=== PATIENT | female | born 1990 | race Caucasian/White ===

== ENCOUNTER 2019-10-30 15:22 | Emergency (ER) | payer BC, OTHER ==
[~2019-10-30] VITALS: Ht 162 cm; Wt 81.0 kg
[2019-10-30 16:14] LABS: BASOPHILS % (AUTO) 0 % (0-10); EOSINOPHILS # (AUTO) 0.2 10^3/uL (0.0-0.3); EOSINOPHILS % (AUTO) 2 % (0-10); HEMATOCRIT 39 % (35-52); HEMOGLOBIN 13.2 G/DL (11.5-16.0); LYMPHOCYTES # (AUTO) 1.8 X 10^3 (1.0-4.0); LYMPHOCYTES % (AUTO) 20 % (12-44); MEAN CORPUSCULAR HEMOGLOBIN 31 PG (25-34); MEAN CORPUSCULAR HGB CONC 34 G/DL (32-36); MEAN CORPUSCULAR VOLUME 90 FL (80-99); MEAN PLATELET VOLUME 10.7 FL (7.4-10.4); MONOCYTES # (AUTO) 0.5 X 10^3 (0.0-1.0); MONOCYTES % (AUTO) 5 % (0-12); NEUTROPHILS # (AUTO) 6.9 X 10^3 (1.8-7.8); NEUTROPHILS % (AUTO) 73 % (42-75); PLATELET COUNT 142 10^3/uL (130-400); RED CELL DISTRIBUTION WIDTH 12.1 % (10.0-14.5); WHITE BLOOD COUNT 9.4 10^3/uL (4.3-11.0)
[2019-10-30] MEDS ORDERED: ACETAMINOPHEN 500 MG TAB (TYLENOL) PO ONE (16:30)
[2019-10-30 16:31] LABS: INR 0.9 (0.8-1.4); PROTHROMBIN TIME PATIENT 12.5 SEC (12.2-14.7)
[2019-10-30 16:40] LABS: BILIRUBIN,URINE NEGATIVE (NEGATIVE); CLARITY,URINE TURBID; COLOR,URINE AMBER; GLUCOSE, URINE (UA) NEGATIVE (NEGATIVE); KETONES,URINE 1+ (NEGATIVE); LEUKOCYTE ESTERASE ,URINE 2+ (NEGATIVE); NITRITE,URINE POSITIVE (NEGATIVE); PROTEIN,URINE 3+ (NEGATIVE)
[2019-10-30 16:49] LABS: BACTERIA,URINE NEGATIVE /HPF; RBC,URINE TNTC /HPF; SQUAMOUS EPITHELIAL CELL,UR RARE /HPF; WBC,URINE RARE /HPF
[2019-10-30 17:00] LABS: CHLORIDE 103 MMOL/L (98-107); POTASSIUM 3.1 MMOL/L (3.6-5.0); SODIUM 138 MMOL/L (135-145)
[2019-10-30 17:01] LABS: CALCIUM 8.4 MG/DL (8.5-10.1); GLUCOSE 88 MG/DL (70-105)
[2019-10-30 17:03] LABS: CARBON DIOXIDE 20 MMOL/L (21-32)
[2019-10-30 17:05] LABS: CREATININE SERUM 0.74 MG/DL (0.60-1.30); GFR ESTIMATED > 60
[2019-10-30 17:06] LABS: BUN/CREATININE RATIO 11
[2019-10-30] MEDS ORDERED: ACET-789 PO (17:06)
--- NOTE | 2019-10-30 17:07 | ED GU-Female ---
General Chief Complaint: Female Reproductive Stated Complaint: APPROX 6 WKS PREG/CRAMPING/HEAVY BLEEDING Nursing Triage Note: patient reports miscarraige approx 6 weeks. c/o stomach cramps x1week. confirmed miscarraige by dr. corrales Nursing Sepsis Screen: No Definite Risk Source: patient History of Present Illness Date Seen by Provider: Oct 30, 2019 Time Seen by Provider: 15:40 Initial Comments PT ARRIVES VIA POV FROM HOME PT STATES SHE IS 6 WEEKS AND "HAD A GUSH OF BLOOD" AT 1500 TODAY HAS NOT USED ANY PADS YET HAS BEEN CRAMPING ALL DAY PT LATER STATES THAT SHE HAS ACTUALLY BEEN BLEEDING FOR THE LAST WEEK, BUT NOT BAD-UNTIL GUSH OF BLOOD TODAY LATER STATES THAT SHE PASSED TISSUE TODAY LATER SHE REPORTS THAT SHE "KNOWS SHE IS HAVING A MISCARRIAGE" AND HAS SEEN DR. KNUTSON FOR THIS, AND HAS HAD LAB DONE AND QUANT BHCG HAD BEEN 6700, DROPPED TO 4700, AND IN OFFICE ULTRASOUND DID NOT SHOW ANY HEART BEAT STATES SHE IS WORRIED ABOUT THE GUSH OF BLOOD AND THE PAIN HAS NOT TAKEN ANYTHING FOR PAIN PT IS STILL HER 16 MONTH OLD. Allergies and Home Medications Allergies Coded Allergies: hydrocodone (Verified Allergy, Mild, 10/30/19) Home Medications Acetaminophen with Codeine 1 Each Tablet, 1 EACH PO Q6H Prescribed by: BEULAH MIRANDA on 10/30/19 1706 Patient Home Medication List Home Medication List Reviewed: Yes Review of Systems Review of Systems Constitutional: no symptoms reported Respiratory: no symptoms reported Cardiovascular: no symptoms reported Gastrointestinal: see HPI, abdominal pain Genitourinary: see HPI : Yes Musculoskeletal: no symptoms reported Skin: no symptoms reported Psychiatric/Neurological: No Symptoms Reported Endocrine: No Symptoms Reported Hematologic/Lymphatic: No Symptoms Reported Past Ugcugyg-Xoscai-Slgzfr Hx Past Med/Social Hx: Reviewed and Corrections made Patient Social History Alcohol Use: Denies Use Recreational Drug Use: No Smoking Status: Never a Smoker 2nd Hand Smoke Exposure: No Recent Foreign Travel: No Contact w/Someone Who Travel: No Recent Infectious Disease Expo: No Recent Hopitalizations: No Physical Abuse: No Sexual Abuse: No Mistreated: No Fear: No Immunizations Up To Date Tetanus Booster (TDap): Less than 5yrs PED Vaccines UTD: Yes Seasonal Allergies Seasonal Allergies: Yes Past Medical History Surgeries: Yes Adenoidectomy, Section, Tonsillectomy Respiratory: Yes Asthma Currently Using CPAP: No Currently Using BIPAP: No Cardiac: Yes (tachycardia) : Yes Last Menstrual Period: August 27, 2019 Sexually Transmitted Disease: No HIV/AIDS: No Genitourinary: No Gastrointestinal: No Musculoskeletal: No Endocrine: No 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 oz. kg; 30.00 BMI Method: General Appearance: WD/WN, no apparent distress Cardiovascular: regular rate, rhythm, no murmur Respiratory: normal breath sounds Gastrointestinal: soft, no organomegaly, no pulsatile mass, tenderness (MILD SUPRAPUBIC TENDERNESS) Pelvic: No tender adnexa; tender uterus, vaginal bleeding (MODERATE AMOUNT OF BLOOD IN CANAL. 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 II-XII nml as tested, no motor/sensory deficits, alert, oriented x 3 Skin: normal color, warm/dry Progress/Results/Core Measures Suspected Sepsis Recent Fever Within 48 Hours: No Infection Criteria Present: None New/Unexplained Altered Menta: No Sepsis Screen: No Definite Risk SIRS Temperature: Pulse: 105 Respiratory Rate: 18 Laboratory Tests 10/30/19 15:55: White Blood Count 9.4 Blood Pressure 149 /96 Mean: 113 Laboratory Tests 10/30/19 15:55: Creatinine 0.74, INR Comment 0.9, Platelet Count 142 Results/Orders Lab Results Laboratory Tests Test 10/30/19 15:55 10/30/19 16:34 Range/Units White Blood Count 9.4 4.3-11.0 10^3/uL Red Blood Count 4.30 L 4.35-5.85 10^6/uL Hemoglobin 13.2 11.5-16.0 G/DL Hematocrit 39 35-52 % Mean Corpuscular Volume 90 80-99 FL Mean Corpuscular Hemoglobin 31 25-34 PG Mean Corpuscular Hemoglobin Concent 34 32-36 G/DL Red Cell Distribution Width 12.1 10.0-14.5 % Platelet Count 142 130-400 10^3/uL Mean Platelet Volume 10.7 H 7.4-10.4 FL Neutrophils (%) (Auto) 73 42-75 % Lymphocytes (%) (Auto) 20 12-44 % Monocytes (%) (Auto) 5 0-12 % Eosinophils (%) (Auto) 2 0-10 % Basophils (%) (Auto) 0 0-10 % Neutrophils # (Auto) 6.9 1.8-7.8 X 10^3 Lymphocytes # (Auto) 1.8 1.0-4.0 X 10^3 Monocytes # (Auto) 0.5 0.0-1.0 X 10^3 Eosinophils # (Auto) 0.2 0.0-0.3 10^3/uL Basophils # (Auto) 0.0 0.0-0.1 10^3/uL Prothrombin Time 12.5 12.2-14.7 SEC INR Comment 0.9 0.8-1.4 Activated Partial Thromboplast Time 32 24-35 SEC Sodium Level 138 135-145 MMOL/L Potassium Level 3.1 L 3.6-5.0 MMOL/L Chloride Level 103 98-107 MMOL/L Carbon Dioxide Level 20 L 21-32 MMOL/L Anion Gap 15 H 5-14 MMOL/L Blood Urea Nitrogen 8 7-18 MG/DL Creatinine 0.74 0.60-1.30 MG/DL Estimat Glomerular Filtration Rate > 60 BUN/Creatinine Ratio 11 Glucose Level 88 70-105 MG/DL Calcium Level 8.4 L 8.5-10.1 MG/DL Human Chorionic Gonadotropin, Quant 415 H <5 MIU/ML Urine Color VAL H Urine Clarity TURBID Urine pH 7.0 5-9 Urine Specific [place] 1.010 L 1.016-1.022 Urine Protein 3+ H NEGATIVE Urine Glucose (UA) NEGATIVE NEGATIVE Urine Ketones 1+ H NEGATIVE Urine Nitrite POSITIVE H NEGATIVE Urine Bilirubin NEGATIVE NEGATIVE Urine Urobilinogen 2.0 < = 1.0 MG/DL Urine Leukocyte Esterase 2+ H NEGATIVE Urine RBC (Auto) 3+ H NEGATIVE Urine RBC TNTC H /HPF Urine WBC RARE /HPF Urine Squamous Epithelial Cells RARE /HPF Urine Crystals NONE /LPF Urine Bacteria NEGATIVE /HPF Urine Casts NONE /LPF Urine Mucus NEGATIVE /LPF Urine Culture Indicated YES Micro Results Microbiology 10/30/19 Urine Culture - Preliminary, Resulted Culture In Progress My Orders Orders - RUBENBEULAH Flakito DO Basic Metabolic Panel (10/30/19 15:41) Cbc With Automated Diff (10/30/19 15:41) Hcg,Quantitative (10/30/19 15:41) Protime With Inr (10/30/19 15:41) Partial Thromboplastin Time (10/30/19 15:41) Abo Rh Type (10/30/19 15:41) Ed Iv/Invasive Line Start (10/30/19 15:41) Ed Iv/Invasive Line Start (10/30/19 15:41) Ua Culture If Indicated (10/30/19 16:22) Acetaminophen Tablet (Tylenol Tablet) (10/30/19 16:30) Urine Culture (10/30/19 16:34) Acetaminophen/Codeine Tablet (Tylenol W/ (10/30/19 17:15) Medications Given in ED Vital Signs/I&O Capillary Refill : Less Than 3 Seconds Blood Pressure Mean: 113 Progress Note : Progress Note PT ADVISED NO ULTRASOUND AVAILABLE HERE AT THIS TIME PT STATES SHE KNOWS SHE IS HAVING A MISCARRIAGE, BECAUSE OF DECREASED BETA HCG AND NO HEART BEAT ON OFFICE ULTRASOUND MAINLY WANTS SOMETHING FOR PAIN --STATES SHE HAD ITCHING ONE TIME WITH HYDROCODONE/VICODIN, BUT HAS TAKEN TYLENOL #3 WITHOUT PROBLEMS. Departure Impression Primary Impression: Spontaneous in first trimester Disposition: 01 HOME, SELF-CARE Condition: Stable Departure-Patient Inst. Referrals: REE KNUTSON MD (PCP/Family) Primary Care Physician Patient Instructions: Miscarriage (DC) Add. Discharge Instructions: NOTHING IN VAGINA KEEP AN ACCURATE PAD COUNT FOLLOW UP WITH DR. KNUTSON TOMORROW FOR FURTHER CARE All discharge instructions reviewed with patient and/or family. Voiced understanding. Scripts Acetaminophen with Codeine (Tylenol with Codeine #3 Tablet) 1 Each Tablet 1 EACH PO Q6H for Pain, #10 TAB Prov: BEULAH MIRANDA DO 10/30/19 BEULAH MIRANDA DO Oct 30, 2019 17:07
[2019-10-30 17:15] VITALS: BP 113/89
[2019-10-30] MEDS ORDERED: APAP 300 MG/CODEINE 30 MG (TYLENOL #3) TAB PO ONE (17:15)
== END 2019-10-30 17:15 | disposition home or self-care (01) ==
LOC: ER 15:24
DX: O03.9 Complete or unspecified spontaneous abortion without complication (principal); Z88.5 Allergy status to narcotic agent
CPT/HCPCS: 36415; 80048; 81000; 84702; 85025; 85610; 85730; 86900; 86901; 87088

== ENCOUNTER 2019-11-08 10:34 | Day surgery (SDC) | payer BC ==
[2019-11-08] VITALS (9 sets, daily range): BP systolic 96–121; BP diastolic 60–84
[~2019-11-08] VITALS: Ht 162 cm; Wt 81.0 kg
[~2019-11-08 10:34] MED LIST: ACET-789 PO
[2019-11-08] MEDS ORDERED: fentaNYL INJECTION 100 MCG/2 ML AMP ONE (11:15)
[2019-11-08] MEDS ORDERED: MIDAZOLAM 2 MG/2 ML (VERSED) VIAL ONE (11:15)
[2019-11-08] MEDS ORDERED: FAMOTIDINE 20MG/2ML IV (PEPCID) ONE ×2 (11:24→11:28)
[2019-11-08] MEDS ORDERED: ceFAZolin INJECTION 1,000 MG in WATER (STERILE) FOR INJECTION 10 ML IV ONE (11:30)
--- NOTE | 2019-11-08 11:33 | Progress Note-Pre Operative ---
Pre-Operative Progress Note H&P Reviewed The H&P was reviewed, patient examined and no changes noted. Date Seen by Provider: Nov 08, 2019 Time Seen by Provider: 11:33 Date H&P Reviewed: Nov 08, 2019 Time H&P Reviewed: 11:33 Pre-Operative Diagnosis: Missed REE HUNTER MD Nov 08, 2019 11:33
[2019-11-08 11:34] LABS: BASOPHILS % (AUTO) 0 % (0-10); EOSINOPHILS # (AUTO) 0.2 10^3/uL (0.0-0.3); EOSINOPHILS % (AUTO) 3 % (0-10); HEMATOCRIT 36 % (35-52); HEMOGLOBIN 11.7 G/DL (11.5-16.0); LYMPHOCYTES # (AUTO) 2.5 X 10^3 (1.0-4.0); LYMPHOCYTES % (AUTO) 29 % (12-44); MEAN CORPUSCULAR HEMOGLOBIN 29 PG (25-34); MEAN CORPUSCULAR HGB CONC 33 G/DL (32-36); MEAN CORPUSCULAR VOLUME 89 FL (80-99); MEAN PLATELET VOLUME 11.2 FL (7.4-10.4); MONOCYTES # (AUTO) 0.5 X 10^3 (0.0-1.0); MONOCYTES % (AUTO) 5 % (0-12); NEUTROPHILS # (AUTO) 5.5 X 10^3 (1.8-7.8); NEUTROPHILS % (AUTO) 63 % (42-75); PLATELET COUNT 212 10^3/uL (130-400); RED CELL DISTRIBUTION WIDTH 12.2 % (10.0-14.5); WHITE BLOOD COUNT 8.8 10^3/uL (4.3-11.0)
--- NOTE | 2019-11-08 11:34 | Progress Note-Post Operative ---
Post-Operative Progess Note Surgeon (s)/Holistic Nutritionist (s) Surgeon REE KNUTSON MD Holistic Nutritionist: no Pre-Operative Diagnosis Missed AB Post-Operative Diagnosis same Procedure & Operative Findings Date of Procedure 11/08/19 Procedure Performed/Findings D&C Anesthesia Type GETA Estimated Blood Loss Estimated blood loss (mL): 100cc Specimens/Packing Specimens Removed POC / uterine contents ERE KNUTSON MD Nov 08, 2019 11:34
--- NOTE | 2019-11-08 11:35 | Discharge Inst-Surgical ---
Discharge Inst-Surgical Depart Medication/Instructions New, Converted or Re-Newed RX: RX on Chart Consults/Follow Up Orders & Referrals Follow Up Appt: Call to make follow up appt. for patient in 2 weeks. Activity: Rest for 24 hours, than as tolerated. Diet: As tolerated. Shower or tub bathe as desired. No driving for 24 hours, no alcoholic beverages for 24 hours, and nothing per vagina (no tampons, douching, or intercourse) for 2 weeks. Patient to return to the clinic as soon as possible for: Temperature greater than 101F, Severe Pain, Foul discharge from incision or vagina, Excessive Bleeding (more than a period). Activity Activity as Tolerated: No Diet Discharge Diet: No Restrictions REE KNUTSON MD Nov 08, 2019 11:35
[2019-11-08] MEDS ORDERED: ONDANSETRON 4 MG/2 ML (SDV) Z0FRAN IVP PRN (11:45)
[2019-11-08] MEDS ORDERED: morphine INJ 10 MG/ML 1ML (SYR OR VIAL) IVP ONE (11:45)
[2019-11-08] MEDS ORDERED: SEVOFLURANE (ULTANE) 15 ML INHAL SOLN ONE (11:55)
[2019-11-08] MEDS ORDERED: proPOfol 200 MG/20 ML (DIPRIVAN) VIAL IV ONE (11:55)
[2019-11-08] MEDS ORDERED: LIDOCAINE PF 2% 5 ML (XYLOCAINE) VIAL ONE (11:55)
[2019-11-08] MEDS ORDERED: ONDANSETRON 4 MG/2 ML (SDV) Z0FRAN ONE (11:55)
--- OUTSIDE RECORDS SUMMARY | 2019-11-08 12:16 | XMS REPORT | Continuity of Care Document ---
Author Organization Unknown Address Unknown Phone Unavailable Allergies Active Description Code Type Severity Reaction Onset Reported/Identified Relationship to Patient Clinical Status Yes acetaminophen [id number] Brian g Allergy Mild N/A 10/30/2019 Yes hydrocodone [id number] Drug Aller gy Mild N/A 10/30/2019 Medications There is no data. Problems Date Dx Coded Attending Type Code Diagnosis Diagnosed By 11/02/2019 BEULAH MIRANDA DO Ot O03.9 COMPLETE OR UNSP SPONTANEOUS WI 11/02/2019 BEULAH MIRANDA DO Ot Z88.5 ALLERGY STATUS TO NARCOTIC AGENT STATUS Procedures There is no data. Results Test Result Range Complete blood count (CBC) with automate d white blood cell (WBC) differential - 10/30/19 15:55 Blood leukocytes automated count (number/volume) 9.4 10*3/uL 4.3-11.0 Blood erythrocytes automated count (number/volume) 4.30 10*6/uL 4.35-5.85 Venous blood hemoglobin measurement (mass/volume) 13.2 g/dL 11.5-16.0 Blood hematocrit (volume fraction) 39 % 35-52 Automated erythrocyte mean corpuscular volume 90 [ foz_us] 80-99 Automated erythrocyte mean corpuscular h emoglobin (mass per erythrocyte) 31 pg 25-34 Automated erythrocyte mean corpuscular h emoglobin concentration measurement (mass/volume) 34 g/dL 32-36 Automated erythrocyte distribution width ratio 12. 1 % 10.0- 14.5 Automated blood platelet count (count/volume) 142 10*3/uL 130-400 Automated blood platelet mean volume measurement 10.7 [foz_us] 7.4-10.4 Automated blood neutrophils/100 leukocytes 73 % 42-75 Automated blood lymphocytes/100 leukocytes 20 % 12-44 Blood monocytes/100 leukocytes 5 % 0-12 Automated blood eosinophils/100 leukocytes 2 % 0-10 Automated blood basophils/100 leukocytes 0 % 0-10 Blood neutrophils automated count (number/volume) 6.9 10*3 1.8-7.8 Blood lymphocytes automated count (number/volume) 1.8 10*3 1.0-4.0 Blood monocytes automated count (number/volume) 0. 5 10*3 0.0-1.0 Automated eosinophil count 0.2 10*3/uL 0 .0-0.3 Automated blood basophil count (count/volume) 0.0 10*3/uL 0.0-0.1 ABO+Rh group - 10/30/19 15:55 WRISTBAND NUMBER [id number] NRG ABO+Rh group OP NRG PT panel in platelet poor plasma by coag ulation assay - 10/30/19 15:55 Prothrombin time (PT) in platelet poor plasma by coagu lation assay 12.5 s 12.2-14.7 INR in platelet poor plasma or blood by coagulation as say 0.9 0.8-1.4 Activated partial thromboplastin time (a PTT) in platelet poor plasma bycoagulation assay - 10/30/19 15:55 Activated partial thromboplastin time (a PTT) in platelet poor plasma bycoagulation assay 32 s 24-35 Whole blood basic metabolic panel - 10/18 06/09 15:55 Serum or plasma sodium measurement (moles/volume) 138 mmol/L 135-145 Serum or plasma potassium measurement (moles/volume) 3.1 mmol/L 3.6-5.0 Serum or plasma chloride measurement (moles/volume) 103 mmol/L 98-107 Carbon dioxide 20 mmol/L 21-32 Serum or plasma anion gap determination (moles/volume) 15 mmol/L 5-14 Serum or plasma urea nitrogen measurement (mass/volume ) 8 mg/dL 7-18 Serum or plasma creatinine measurement (mass/volume) 0.74 mg/dL 0.60-1.30 Serum or plasma urea nitrogen/creatinine mass ratio 11 NRG Serum or plasma creatinine measurement w ith calculation of estimated glomerular filtration rate > NRG Serum or plasma glucose measurement (mass/volume) 88 mg/dL 70-105 Serum or plasma calcium measurement (mass/volume) 8.4 mg/dL 8.5-10.1 Serum or plasma choriogonadotropin measu rement (units/volume) - 10/30/19 15:55 Serum or plasma choriogonadotropin measurement (units/ volume) 415 m[iU]/mL <5 Complete urinalysis with reflex to cultu re - 10/30/19 16:34 Urine color determination VAL NRG Urine clarity determination TURBID NR G Urine pH measurement by test strip 7.0 5-9 Specific gravity of urine by test strip 1.010 1.016-1.022 Urine protein assay by test strip, semi-quantitative 3+ NEGATIVE Urine glucose detection by automated test strip NE GATIVE NEGATIVE Erythrocytes detection in urine sediment by light micr oscopy 3+ NEGATIVE Urine ketones detection by automated test strip 1+ NEGATIVE Urine nitrite detection by test strip POSITIVE NEGATIVE Urine total bilirubin detection by test strip NEGA TIVE NEGATIVE Urine urobilinogen measurement by automated test strip (mass/volume) 2.0 mg/dL < = 1.0 Urine leukocyte esterase detection by dipstick 2+ NEGATIVE Automated urine sediment erythrocyte cou nt by microscopy (number/high power field) TNTC NRG Automated urine sediment leukocyte count by microscopy (number/high power field) RARE NRG Bacteria detection in urine sediment by light microsco py NEGATIVE NRG Squamous epithelial cells detection in u rine sediment by light microscopy RARE NRG Crystals detection in urine sediment by light microsco py NONE NRG Casts detection in urine sediment by light microscopy NONE NRG Mucus detection in urine sediment by light microscopy NEGATIVE NRG Complete urinalysis with reflex to culture YES NRG Bacterial urine culture - 10/30/19 16:34 Bacterial urine culture 3 OR MORE NRG COLONY COUNT >100,000/ML NRG SUSCEPTIBILITY GRAM POSITIVES, SUGGESTING PROBABLE NRG MRSA SCREEN COLLECTION CONTAMINATION WITH SKIN BOB RA NRG RAPID ID NO SUSCEPTIBILITY PERFORMED N RG Encounters ACCT No. Visit Date/Time Discharge Status Pt. Type Provider Facility Loc./Unit Complaint [id number] 10/30/2019 15:24:00 020 17:15:00 DIS Outpatient BEULAH MIRANDA DO, V [facility] ER APPROX 6 WKS PREG/CRAMP ING/HEAVY BLEEDING
[2019-11-08] MEDS ORDERED: SERT100T PO (13:30)
[2019-11-08] MEDS ORDERED: BUSP15TA60 PO (13:30)
--- NOTE | 2019-11-08 14:14 | OPERATIVE REPORT ---
DATE OF SERVICE: 11/08/2019 PREOPERATIVE DIAGNOSIS: Nine week missed . POSTOPERATIVE DIAGNOSIS: Nine week missed . OPERATIVE PROCEDURE: D and C for a nine-week missed . OPERATIVE DESCRIPTION: With the patient in the supine position under satisfactory general anesthesia, she was repositioned in dorsal lithotomy position in the [facility] stirrups and prepped and draped in the usual manner for vaginal surgery. Urinary bladder was drained with straight catheter. A weighted speculum placed in posterior fornix of vagina, cervix exposed and grasped anteriorly with single tooth tenaculum. The uterus was sounded to 12 cm with uterine sound. The cervix. NOTE: DICTATION ENDS HERE. Job ID: [id number] DocumentID: [id number] Dictated Date: 11/08/2019 11:59:29 Associate Professor Physician Date: 11/08/2019 14:13:19 Dictated By: REE KNUTSON MD
--- NOTE | 2019-11-08 15:03 | Anesthesia-General Post-Op ---
General Patient Condition Mental Status/LOC: Same as Preop Cardiovascular: Satisfactory Nausea/Vomiting: Absent Respiratory: Satisfactory Pain: Controlled Complications: Absent Post Op Complications Complications None Follow Up Care/Instructions Patient Instructions None needed. Anesthesia/Patient Condition Patient Condition Patient was seen after the procedure and she was doing well, no complaints, stable vital signs, no apparent adverse anesthesia problems. JUAN MANLEY DO Nov 08, 2019 15:03
--- NOTE | 2019-11-09 12:33 | OPERATIVE REPORT ---
DATE OF SERVICE: 11/08/2019 PREOPERATIVE DIAGNOSIS: A 9-week with missed . POSTOPERATIVE DIAGNOSIS: A 9-week with missed . OPERATIVE PROCEDURE: D and C for a 9-week missed AB. OPERATIVE DESCRIPTION: With the patient in the supine position under satisfactory general anesthesia, she was repositioned in the dorsal lithotomy position in the [facility] and then prepped and draped in the usual fashion for vaginal surgery. The urinary bladder was drained with a Sanchez catheter. A weighted speculum placed in posterior fornix of the vagina. The cervix was exposed and grasped with a single tooth tenaculum. The uterus was sounded to 12.5 cm with uterine sound. The cervix was then serially dilated to a #9 Hegar dilator. A #9 curved suction curette was introduced and a large amount of trophoblastic appearing tissue as well as decidual tissue, blood clot and debris were evacuated. The endometrial cavity was sharply curettaged in all 4 quadrants to good uterine cry. The curved suction curette was reintroduced, and all blood clot and debris evacuated from the uterus. The curette was removed as was the tenaculum. There was no bleeding from the puncture sites. There was minimal oozing out from the cervical os. The uterus was approximately 8 weeks in size where it had been 10 to 12 weeks in size prior to the procedure. Sponge and needle counts were correct on completion of the procedure. Estimated blood loss was around 100 mL. The patient tolerated the procedure well and was uneventfully awakened from her general anesthesia and transferred to recovery room in stable condition with plans for discharge home PAR. Job ID: [id number] DocumentID: [id number] Dictated Date: 11/09/2019 07:58:08 Integrity Specialist Date: 11/09/2019 12:32:34 Dictated By: REE KNUTSON MD
== END 2019-11-08 13:50 | disposition home or self-care (01) ==
LOC: SDC 10:34
PROVIDERS: ATTEND Obstetrics & Gynecology
DX: O02.1 Missed abortion (principal); Z88.5 Allergy status to narcotic agent; Z20.828 Contact with and (suspected) exposure to other viral communicable diseases
CPT/HCPCS: 59820; 85025; 87081; U0002; 36415; 87635

== ENCOUNTER 2020-06-22 21:26 | Outpatient (CLI) | payer MEDICAID ==
[~2020-06-22] VITALS: Ht 162.6 cm; Wt 90.0 kg
[~2020-06-22 21:26] MED LIST changes: +BUSP15TA60 PO; +SERT100T PO
[2020-06-22] MEDS ORDERED: D5 LR IV SOLUTION 1,000 ML IV ONE ×2 (21:52→22:00)
[2020-06-22] MEDS ORDERED: fentaNYL INJECTION 100 MCG/2 ML AMP ONE (21:53)
[2020-06-22] MEDS ORDERED: fentaNYL INJECTION 100 MCG/2 ML AMP IVP ONE (22:00)
[2020-06-22 22:28] LABS: MEAN CORPUSCULAR HGB CONC 34 g/dL (32-36)
[2020-06-22 22:30] LABS: BASOPHILS # (AUTO) 0.1 10^3/uL (0.0-0.1); BASOPHILS % (AUTO) 0 % (0-10); EOSINOPHILS # (AUTO) 0.3 10^3/uL (0.0-0.3); EOSINOPHILS % (AUTO) 2 % (0-10); HEMATOCRIT 35 % (35-52); HEMOGLOBIN 11.9 g/dL (11.5-16.0); LYMPHOCYTES # (AUTO) 2.5 10^3/uL (1.0-4.0); LYMPHOCYTES % (AUTO) 18 % (12-44); MEAN CORPUSCULAR HEMOGLOBIN 31 pg (25-34); MEAN CORPUSCULAR VOLUME 93 fL (80-99); MEAN PLATELET VOLUME 11.4 fL (9.0-12.2); MONOCYTES # (AUTO) 0.8 10^3/uL (0.0-1.0); MONOCYTES % (AUTO) 6 % (0-12); NEUTROPHILS % (AUTO) 73 % (42-75); PLATELET COUNT 141 10^3/uL (130-400); WHITE BLOOD COUNT 13.8 10^3/uL (4.3-11.0)
[2020-06-22 22:49] LABS: BILIRUBIN,URINE NEGATIVE (NEGATIVE); CLARITY,URINE SL CLOUDY; COLOR,URINE YELLOW; GLUCOSE, URINE (UA) NEGATIVE (NEGATIVE); KETONES,URINE NEGATIVE (NEGATIVE); LEUKOCYTE ESTERASE ,URINE NEGATIVE (NEGATIVE); NITRITE,URINE NEGATIVE (NEGATIVE); PH,URINE 6.5 (5-9); PROTEIN,URINE NEGATIVE (NEGATIVE)
[2020-06-22 22:56] LABS: BACTERIA,URINE NEGATIVE /HPF; SQUAMOUS EPITHELIAL CELL,UR 0-2 /HPF; WBC,URINE 0-2 /HPF
[2020-06-22 23:00] VITALS: BP 121/70
--- NOTE | 2020-06-25 08:06 | Physician Query-Final Dx ---
DAISY PERLA 06/25/20 0806: Clinic Account Progress/Dx Physician Query: Please give diagnosis Please include # weeks gestation Date of Service Jun 22, 2020 at 21:26 REE KNUTSON MD 06/27/20 0755: Clinic Account Progress/Dx DIAGNOSIS: Diagnosis False labor at 28 weeks gestation DAIYS PERLA Jun 25, 2020 08:06 REE KNUTSON MD Jun 27, 2020 07:55
== END 2020-06-22 23:15 | disposition home or self-care (01) ==
LOC: WSo 21:26 → LDRP 21:26 → WSo 23:15
PROVIDERS: ATTEND Obstetrics & Gynecology
DX: O47.03 False labor before 37 completed weeks of gestation, third trimester (principal); Z3A.28 28 weeks gestation of pregnancy
CPT/HCPCS: 36415; 81000; 85025; 99213

== ENCOUNTER 2020-08-23 05:39 | Outpatient (CLI) | payer MEDICAID ==
[~2020-08-23] VITALS: Ht 162.6 cm; Wt 92.7 kg
[2020-08-23] MEDS ORDERED: BUSP30TA2 PO (14:56)
[2020-08-23] MEDS ORDERED: PREN1TAB79 PO (14:56)
[2020-08-23] MEDS ORDERED: METF-397 PO (14:56)
[2020-08-24] MEDS ORDERED: IBUP-1780 PO (12:52)
[2020-08-24] MEDS ORDERED: OXYC1TAB12 PO ×2 (12:52→12:53)
[2020-08-24] MEDS ORDERED: DOCU-143 PO (12:52)
== END 2020-08-23 15:23 | disposition home or self-care (01) ==
LOC: PREOP 05:39
PROVIDERS: ATTEND Obstetrics & Gynecology
DX: Z01.818 Encounter for other preprocedural examination (principal)

== ENCOUNTER 2020-08-24 09:01 | Inpatient (IN) | payer MEDICAID ==
[2020-08-24] VITALS (10 sets, daily range): BP systolic 112–127; BP diastolic 60–88
[~2020-08-24] VITALS: Ht 162.6 cm; Wt 91.0 kg
[~2020-08-24 09:01] MED LIST changes: +BUSP30TA2 PO; +METF-397 PO; +PREN1TAB79 PO
[2020-08-24] MEDS ORDERED: ceFAZolin 2 GM IV Premixed 50 ML IV ONE (09:15)
[2020-08-24] MEDS ORDERED: metroNIDAZOLE 500MG/100ML IVPB 100 ML IV ONE (09:15)
[2020-08-24 09:47] LABS: MEAN CORPUSCULAR VOLUME 92 fL (80-99)
[2020-08-24 09:48] LABS: BASOPHILS % (AUTO) 0 % (0-10); EOSINOPHILS # (AUTO) 0.1 10^3/uL (0.0-0.3); EOSINOPHILS % (AUTO) 1 % (0-10); HEMATOCRIT 38 % (35-52); LYMPHOCYTES # (AUTO) 2.1 10^3/uL (1.0-4.0); LYMPHOCYTES % (AUTO) 23 % (12-44); MEAN CORPUSCULAR HEMOGLOBIN 31 pg (25-34); MEAN CORPUSCULAR HGB CONC 34 g/dL (32-36); MEAN PLATELET VOLUME 13.1 fL (9.0-12.2); MONOCYTES # (AUTO) 0.6 10^3/uL (0.0-1.0); MONOCYTES % (AUTO) 7 % (0-12); NEUTROPHILS # (AUTO) 6.1 10^3/uL (1.8-7.8); NEUTROPHILS % (AUTO) 68 % (42-75); PLATELET COUNT 105 10^3/uL (130-400)
[2020-08-24] MEDS ORDERED: LACTATED RINGERS 1,000 ML IV ONE (10:02)
[2020-08-24] MEDS: LACTATED RINGERS 1,000 ML IV PRN ×2 (10:21→13:15)
[2020-08-24] MEDS ORDERED: CATHETER FLUSH 10 ML SYR IV PRN (10:30)
[2020-08-24] MEDS ORDERED: metroNIDAZOLE 500MG/100ML IVPB 100 ML IV NR (10:30)
[2020-08-24] MEDS ORDERED: ceFAZolin INJECTION 2,000 MG in WATER (STERILE) FOR INJECTION 10 ML IV ONE (10:30)
[2020-08-24] MEDS ORDERED: FAMOTIDINE 20MG/2ML IV (PEPCID) IV ONE (10:30)
[2020-08-24] MEDS ORDERED: METOCLOPRAMIDE INJ 10 MG/2 ML (REGLAN) IV ONE (10:30)
[2020-08-24] MEDS ORDERED: ceFAZolin 2 GM IV Premixed 50 ML IV NR (10:30)
[2020-08-24] MEDS ORDERED: CITRIC ACID/SOB CIT (BICITRA) 30 ML UDC PO ONE (10:30)
[2020-08-24] MEDS ORDERED: D5 LR IV SOLUTION 1,000 ML IV SCH ×2 (10:30→14:15)
[2020-08-24] MEDS ORDERED: LACTATED RINGERS 1,000 ML IV PRN (10:30)
[2020-08-24] MEDS ORDERED: METOCLOPRAMIDE INJ 10 MG/2 ML (REGLAN) ONE (10:33)
[2020-08-24] MEDS ORDERED: CITRIC ACID/SOB CIT (BICITRA) 30 ML UDC ONE (10:33)
[2020-08-24] MEDS ORDERED: metroNIDAZOLE 500MG/100ML IVPB 100 ML ONE (10:33)
[2020-08-24] MEDS ORDERED: FAMOTIDINE 20MG/2ML IV (PEPCID) ONE (10:34)
[2020-08-24] MEDS ORDERED: ceFAZolin 2 GM IV Premixed 50 ML ONE (10:34)
[2020-08-24] MEDS ORDERED: OXYTOCIN PRE-MIX DRIP 1,000 ML IV ONE (12:27)
[2020-08-24] MEDS ORDERED: fentaNYL INJ 100 MCG/2 ML AMP ONE (12:28)
[2020-08-24] MEDS ORDERED: ONDANSETRON 4 MG/2 ML (SDV) Z0FRAN ONE (12:28)
--- NOTE | 2020-08-24 12:50 | History & Physical ---
History and Physical Date Seen by Provider: August 24, 2020 Time Seen by Provider: 12:46 This patient is a 29-year-old 2 para 1 1 white female currently at 37 weeks gestation who presents with complaint of painful contr actions and pelvic pressure. She was seen 2 days ago in my clinic where she has been followed for her gestational diabetes as well as low platelet count. Repeat CBC showed a platelet count of 97,000. Instructions were for follow-up today for recheck however she presented for that recheck and was found to be in labor. Decision was made to admit her and proceed with repeat delivery. Repeat platelet count was 105,000 which is reassuring Patient denies discharge or bleeding. She does have a negative GBS culture after 35 weeks gestation. Patient has been controlling blood sugars adequately with diet. Her was complicated by diagnosis of COVID-19 virus earlier on as well Allergies are to hydrocodone Medications are vitamins Medical social and surgical history is all per the antepartum record HEENT exam is normal Neck is supple no lymphadenopathy no thyromegaly Abdomen is gravid soft nontender nondistended Extremities show no clubbing or cyanosis. There is no Homans' sign. Assessment and plan 37-week gestation and a gestational diabetic who is now in labor and also has low platelet count but has an adequate level for proceeding with under spinal analgesia. Lab work is as follows Laboratory Tests 08/24/20 09:35 37-week gestation with thrombocytopenia and with gestational diabetes and early labor Allergies and Home Medications Allergies Coded Allergies: hydrocodone (Verified Allergy, Mild, 10/30/19) Home Medications Buspirone HCl 30 Mg Tablet, 30 MG PO BID, (Reported) Metformin HCl 500 Mg Tablet, 500 MG PO BID, (Reported) Vit W-Ca,Fe,FA(<1 mg) 1 Each Tablet, 1 EACH PO DAILY, (Reported) Sertraline HCl 100 Mg Tablet, 200 MG PO HS, (Reported) TAKE 2 (100MG) TABS Patient Home Medication List Home Medication List Reviewed: Yes REE KNUTSON MD August 24, 2020 12:50
[2020-08-24] MEDS ORDERED: IBUP-1780 PO (12:52)
[2020-08-24] MEDS ORDERED: DOCU-143 PO (12:52)
[2020-08-24] MEDS ORDERED: OXYC1TAB12 PO ×2 (12:52→12:53)
--- NOTE | 2020-08-24 12:54 | Discharge Inst-Surgical ---
Discharge Inst-Surgical Depart Medication/Instructions New, Converted or Re-Newed RX: RX on Chart Consults/Follow Up Patient Instructions: As directed Orders & Referrals Follow Up Appt: RTC On Thursday, August 31, 2020 at 9:30 AM for incision check. Call to make follow up appt. for patient in 4 weeks. Wound Care: Remove russell, apply benzoin and steri strips. Activity Per routine post instructions. Please call in RX to patient pharmacy. Diet as tolerated Patient may shower or tub bathe as desired. Continue home meds Activity Activity as Tolerated: No Diet Discharge Diet: No Restrictions REE KNUTSON MD August 24, 2020 12:54
[2020-08-24] MEDS ORDERED: SEVOFLURANE (ULTANE) 15 ML INHAL SOLN ONE (14:04)
[2020-08-24] MEDS ORDERED: PHENYLEPHRINE 100 MCG/ML 10 ML (ANESTHESIA) SYR ONE (14:04)
[2020-08-24] MEDS ORDERED: BUPIVACAINE 0.5% 30 ML (SENSORCAINE) VIAL ONE (14:04)
[2020-08-24] MEDS ORDERED: TETANUS,DIPTH,PERTUSS P/F (BOOSTRIX) 0.5 ML VIAL IM ONE (14:15)
[2020-08-24] MEDS ORDERED: MEASLES,MUMPS,RUBELLA 1 EA INJ SC ONE (14:15)
[2020-08-24] MEDS ORDERED: fentaNYL INJ 100 MCG/2 ML AMP IVP PRN (14:15)
[2020-08-24] MEDS ORDERED: OXYTOCIN PRE-MIX DRIP 500 ML IV SCH (14:15)
[2020-08-24] MEDS ORDERED: ONDANSETRON 4 MG/2 ML (SDV) Z0FRAN IVP PRN (14:15)
[2020-08-24] MEDS: KETOROLAC 30 MG/ML VIAL IVP SCH ×2 (15:32→21:12)
[2020-08-24] MEDS: oxyCODONE/APAP 10/325MG (PERCOCET 10) TABLET PO PRN (19:49)
[2020-08-24] MEDS: DOCUSATE SODIUM 100 MG (COLACE) CAP PO SCH (19:49)
--- NOTE | 2020-08-24 23:45 | OPERATIVE REPORT ---
DATE OF SERVICE: 08/24/2020 PREOPERATIVE DIAGNOSES: Term at 37 weeks gestation with gestational diabetes, thrombocytopenia and early labor. POSTOPERATIVE DIAGNOSES: Term at 37 weeks gestation with gestational diabetes, thrombocytopenia and early labor. OPERATIVE PROCEDURE: Repeat low transverse delivery of a viable female with Apgars of 8 and 9 at 1 and 5 minutes respectively. Weight of 7 pounds 1 ounce, time of 1324 and a cord blood pH of 7.31. OPERATIVE DESCRIPTION: With the patient in the supine position under satisfactory general anesthesia as the spinal had been placed proved and adequate, a Pfannenstiel incision was made through the skin with a scalpel at the site of the patient's previous Pfannenstiel incision. The abdomen was entered in the usual manner. Bladder retractor placed in position, clean scalpel used to make a 4 cm hysterotomy incision and then incision was extended bluntly. Copious clear fluid was released on hysterotomy. A vigorous viable female infant was delivered via the uterine incision in the usual manner. Infant was bulb suctioned on delivery of the head and again on completion of delivery. Umbilical cord was doubly clamped and cut and infant passed to the pediatric nurse in attendance for delivery. Cord bloods were obtained. Placenta delivered spontaneously Zam[place]. It was normal with a 3-vessel cord. The uterus was exteriorized and interior wiped clean with a wet laparotomy sponge. Uterine incision closed with a running locked suture of 2-0 Vicryl. Hemostasis was complete. The uterus was returned to abdominal cavity. All blood clot and debris removed from the abdominal cavity. With sponge and needle counts correct, hemostasis assured. Anterior parietal peritoneum was closed with running suture of 2-0 Vicryl. Rectus muscles were closed with that suture as well. The rectus fascia was closed with 2-0 Vicryl, subcutaneous tissue was closed with 2-0 Vicryl and the skin was stapled. Sponge and needle counts were correct on completion of the procedure. Estimated blood loss was 500 mL. The patient tolerated the procedure well and was uneventfully awakened from her general anesthesia and transferred to the recovery room in stable condition. Job ID: [id number] DocumentID: [id number] Dictated Date: 08/24/2020 14:19:29 Electric Refrigerator Servicer Date: 08/24/2020 23:44:28 Dictated By: REE KNUTSON MD
[2020-08-25 00:10] VITALS: BP 110/60
[2020-08-25] MEDS: oxyCODONE/APAP 10/325MG (PERCOCET 10) TABLET PO PRN ×4 (02:21→20:17)
[2020-08-25] MEDS: KETOROLAC 30 MG/ML VIAL IVP SCH ×3 (03:57→15:11)
[2020-08-25 04:32] VITALS: BP 101/65
--- NOTE | 2020-08-25 05:38 | Progress Note ---
Standard Progress Note Progress Notes/Assess & Plan Date Seen by a Provider: August 25, 2020 Time Seen by a Provider: 05:36 Progress/Assessment & Plan This patient is without complaint. She is ambulating, voiding, tolerating oral intake well and has good pain control. She does inquire about resuming her compression medications and we will accommodate that Vital Signs Date Time Temp Pulse Resp B/P (MAP) Pulse Ox O2 Delivery O2 Flow Rate FiO2 08/25/20 04:32 37.2 89 18 101/65 (77) 98 Room Air 08/25/20 00:10 36.8 100 18 110/60 (77) 95 Room Air 08/24/20 19:52 36.0 109 20 112/60 (77) 97 Room Air 08/24/20 15:25 36.6 90 18 122/87 (99) 100 Room Air 08/24/20 15:00 36.3 14 126/85 (99) 100 Room Air 08/24/20 15:00 Room Air 08/24/20 14:50 14 127/88 (101) 100 Room Air 08/24/20 14:45 Room Air 08/24/20 14:40 14 125/88 (100) 100 Room Air 08/24/20 14:30 14 124/84 (97) 100 OxyMask 2 08/24/20 14:30 OxyMask 2 08/24/20 14:20 16 122/86 (98) 100 OxyMask 4 08/24/20 14:15 OxyMask 6 08/24/20 14:10 18 120/79 (93) 100 OxyMask 6 08/24/20 14:03 OxyMask 8 08/24/20 14:03 36.1 18 117/67 (84) 100 OxyMask 8 08/24/20 09:24 36.7 106 18 118/78 (91) 96 Room Air I & O 08/25/20 07:00 Intake Total 2750 ml Output Total 200 ml Balance 2550 ml Vital signs are stable. Patient is afebrile. The abdomen is benign. The surgical incision is clean dry and intact. Extremities show no clubbing or cyanosis. There is no Homans' sign. Assessment and plan Postoperative day #1 status post repeat delivery doing well. Plan is for routine convalescent care today and consider discharge home tomorrow. We will resume her BuSpar and Zoloft Final Diagnosis 37-week repeat delivery REE KNUTSON MD August 25, 2020 05:38
[2020-08-25 08:48] VITALS: BP 118/79
[2020-08-25] MEDS ORDERED: IBUPROFEN 800 MG (MOTRIN) TAB PO ONE ×3 (09:49→21:38)
[2020-08-25] MEDS: busPIRone 15 MG (BUSPAR) TABLET PO SCH ×2 (09:57→21:48)
[2020-08-25] MEDS: DOCUSATE SODIUM 100 MG (COLACE) CAP PO SCH ×2 (09:58→21:49)
[2020-08-25] MEDS: SERTRALINE 100 MG (ZOLOFT) TAB PO SCH (10:00)
--- NOTE | 2020-08-25 10:06 | Anesthesia-Regional Post-Op ---
Regional Significant Intra-Op Events Notes Patient first had a spinal block that did not take well, thus she requested a general anesthetic to follow. Patient states she has a slight scratchy throat but ice chips soothe that and she otherwise has no complaints. Site benign from spinal and she denies recall from [place]. Patient Condition Mental Status: Alert, Oriented x3 Circulation: Same as Pre-Op Headache: Absent Sensation: Full Recovery Motor Block: Absent Post Op Complications Complications None Follow Up Care/Instructions Patient Instructions None needed. Anesthesia/Patient Condition Patient is doing well, no complaints, stable vital signs, no apparent adverse anesthesia problems. No complications reported per nursing. SULMA EDEN CRNA August 25, 2020 10:06
[2020-08-25 12:55] VITALS: BP 116/79
[2020-08-25 20:00] VITALS: BP 114/73
[2020-08-25] MEDS ORDERED: SERTRALINE 100 MG (ZOLOFT) TAB PO SCH ×2 (21:00)
[2020-08-26] VITALS: BP 120/77
[2020-08-26] MEDS ORDERED: diphenhydrAMINE 25 MG TAB (BENADRYL) PO ONE ×3 (00:30→08:45)
[2020-08-26] MEDS: oxyCODONE/APAP 10/325MG (PERCOCET 10) TABLET PO PRN ×5 (00:36→20:01)
[2020-08-26] MEDS ORDERED: IBUPROFEN 800 MG (MOTRIN) TAB PO ONE (03:54)
[2020-08-26 04:07] VITALS: BP 112/72
[2020-08-26] MEDS: DOCUSATE SODIUM 100 MG (COLACE) CAP PO SCH ×2 (08:38→20:01)
[2020-08-26] MEDS: busPIRone 15 MG (BUSPAR) TABLET PO SCH ×2 (08:39→22:14)
[2020-08-26] MEDS: SERTRALINE 100 MG (ZOLOFT) TAB PO SCH (08:39)
--- NOTE | 2020-08-26 09:12 | Progress Note ---
Standard Progress Note Progress Notes/Assess & Plan Date Seen by a Provider: August 26, 2020 Time Seen by a Provider: 09:11 Progress/Assessment & Plan This patient is without complaint. She is ambulating, voiding, tolerating oral intake well and has good pain control. She does inquire about resuming her compression medications and we will accommodate that Vital Signs Date Time Temp Pulse Resp B/P (MAP) Pulse Ox O2 Delivery O2 Flow Rate FiO2 08/25/20 04:32 37.2 89 18 101/65 (77) 98 Room Air 08/25/20 00:10 36.8 100 18 110/60 (77) 95 Room Air 08/24/20 19:52 36.0 109 20 112/60 (77) 97 Room Air 08/24/20 15:25 36.6 90 18 122/87 (99) 100 Room Air 08/24/20 15:00 36.3 14 126/85 (99) 100 Room Air 08/24/20 15:00 Room Air 08/24/20 14:50 14 127/88 (101) 100 Room Air 08/24/20 14:45 Room Air 08/24/20 14:40 14 125/88 (100) 100 Room Air 08/24/20 14:30 14 124/84 (97) 100 OxyMask 2 08/24/20 14:30 OxyMask 2 08/24/20 14:20 16 122/86 (98) 100 OxyMask 4 08/24/20 14:15 OxyMask 6 08/24/20 14:10 18 120/79 (93) 100 OxyMask 6 08/24/20 14:03 OxyMask 8 08/24/20 14:03 36.1 18 117/67 (84) 100 OxyMask 8 08/24/20 09:24 36.7 106 18 118/78 (91) 96 Room Air I & O 08/25/20 07:00 Intake Total 2750 ml Output Total 200 ml Balance 2550 ml Vital signs are stable. Patient is afebrile. The abdomen is benign. The surgical incision is clean dry and intact. Extremities show no clubbing or cyanosis. There is no Homans' sign. Assessment and plan Postoperative day #1 status post repeat delivery doing well. Plan is for routine convalescent care today and consider discharge home tomorrow. We will resume her BuSpar and Zoloft August 26, 2020 This patient is without complaint. She is ambulating, voiding, tolerating oral intake well and has good pain control. Patient does complain of some itching and has a mild rash in the periincisional area. Vital Signs Date Time Temp Pulse Resp B/P (MAP) Pulse Ox O2 Delivery O2 Flow Rate FiO2 08/26/20 04:07 36.3 85 18 112/72 (85) 96 Room Air 08/26/20 00:00 36.2 87 18 120/77 (91) 97 Room Air 08/25/20 21:00 Room Air 08/25/20 20:00 36.3 96 18 114/73 (87) 97 Room Air 08/25/20 12:55 36.6 91 18 116/79 (91) 99 Room Air Vital signs are stable. Patient is afebrile. The abdomen is benign. The surgical incision is clean dry and intact. There is a fine slightly miliary rash in the periincisional area. There are no overt signs symptoms or indications of infection. The extremities show no clubbing or cyanosis. There is no Homans' sign. Assessment and plan postoperative day #2 status post repeat delivery at 37 weeks gestation patient is doing well and will have routine convalescent care. We will start a steroid cream to the rash around incision and change to Atarax for general itch relief Final Diagnosis 37-week repeat delivery REE KNUTSON MD August 26, 2020 09:12
[2020-08-26] MEDS ORDERED: hydrOXYzine (ATARAX) 10 MG TAB PO PRN (09:15)
[2020-08-26] MEDS ORDERED: hydrOXYzine (VISTARIL/ATARAX) 25 MG capsule/tablet PO PRN (09:30)
[2020-08-26 09:52] VITALS: BP 123/75
[2020-08-26] MEDS: IBUPROFEN 800 MG (MOTRIN) TAB PO SCH ×3 (09:52→22:14)
[2020-08-26] MEDS ORDERED: HYDROCORTISONE 2.5% CREAM (ANUSOL-HC) 30 GM TOP SCH (13:00)
[2020-08-26 15:48] VITALS: BP 110/63
[2020-08-26] MEDS ORDERED: HYDROCORTISONE 2.5% CREAM (ANUSOL-HC) 30 GM TOP PRN (16:30)
[2020-08-26 22:14] VITALS: BP 118/71
[2020-08-27 03:15] VITALS: BP 116/75
[2020-08-27] MEDS: IBUPROFEN 800 MG (MOTRIN) TAB PO SCH ×2 (03:15→08:12)
[2020-08-27] MEDS: oxyCODONE/APAP 10/325MG (PERCOCET 10) TABLET PO PRN (03:15)
[2020-08-27] MEDS: busPIRone 15 MG (BUSPAR) TABLET PO SCH (08:11)
[2020-08-27] MEDS: SERTRALINE 100 MG (ZOLOFT) TAB PO SCH (08:12)
[2020-08-27 08:15] VITALS: BP 120/72
--- NOTE | 2020-08-27 08:25 | Progress Note ---
Standard Progress Note Progress Notes/Assess & Plan Date Seen by a Provider: August 27, 2020 Time Seen by a Provider: 08:24 Progress/Assessment & Plan This patient is without complaint. She is ambulating, voiding, tolerating oral intake well and has good pain control. She does inquire about resuming her compression medications and we will accommodate that Vital Signs Date Time Temp Pulse Resp B/P (MAP) Pulse Ox O2 Delivery O2 Flow Rate FiO2 08/25/20 04:32 37.2 89 18 101/65 (77) 98 Room Air 08/25/20 00:10 36.8 100 18 110/60 (77) 95 Room Air 08/24/20 19:52 36.0 109 20 112/60 (77) 97 Room Air 08/24/20 15:25 36.6 90 18 122/87 (99) 100 Room Air 08/24/20 15:00 36.3 14 126/85 (99) 100 Room Air 08/24/20 15:00 Room Air 08/24/20 14:50 14 127/88 (101) 100 Room Air 08/24/20 14:45 Room Air 08/24/20 14:40 14 125/88 (100) 100 Room Air 08/24/20 14:30 14 124/84 (97) 100 OxyMask 2 08/24/20 14:30 OxyMask 2 08/24/20 14:20 16 122/86 (98) 100 OxyMask 4 08/24/20 14:15 OxyMask 6 08/24/20 14:10 18 120/79 (93) 100 OxyMask 6 08/24/20 14:03 OxyMask 8 08/24/20 14:03 36.1 18 117/67 (84) 100 OxyMask 8 08/24/20 09:24 36.7 106 18 118/78 (91) 96 Room Air I & O 08/25/20 07:00 Intake Total 2750 ml Output Total 200 ml Balance 2550 ml Vital signs are stable. Patient is afebrile. The abdomen is benign. The surgical incision is clean dry and intact. Extremities show no clubbing or cyanosis. There is no Homans' sign. Assessment and plan Postoperative day #1 status post repeat delivery doing well. Plan is for routine convalescent care today and consider discharge home tomorrow. We will resume her BuSpar and Zoloft August 26, 2020 This patient is without complaint. She is ambulating, voiding, tolerating oral intake well and has good pain control. Patient does complain of some itching and has a mild rash in the periincisional area. Vital Signs Date Time Temp Pulse Resp B/P (MAP) Pulse Ox O2 Delivery O2 Flow Rate FiO2 08/26/20 04:07 36.3 85 18 112/72 (85) 96 Room Air 08/26/20 00:00 36.2 87 18 120/77 (91) 97 Room Air 08/25/20 21:00 Room Air 08/25/20 20:00 36.3 96 18 114/73 (87) 97 Room Air 08/25/20 12:55 36.6 91 18 116/79 (91) 99 Room Air Vital signs are stable. Patient is afebrile. The abdomen is benign. The surgical incision is clean dry and intact. There is a fine slightly miliary rash in the periincisional area. There are no overt signs symptoms or indications of infection. The extremities show no clubbing or cyanosis. There is no Homans' sign. Assessment and plan postoperative day #2 status post repeat delivery at 37 weeks gestation patient is doing well and will have routine convalescent care. We will start a steroid cream to the rash around incision and change to Atarax for general itch relief August 27, 2020 See discharge summary Final Diagnosis 37-week repeat delivery REE KNUTSON MD August 27, 2020 08:25
--- NOTE | 2020-08-27 08:29 | Discharge Summary ---
Discharge Summary 37-week repeat delivery This patient is a 29-year-old white female who was admitted on Thursday, August 24, 2020 due to thrombocytopenia. 2 days prior her platelet count had been 97,000. She has had a progressive decline in platelet count through her . She has had previous was admitted for evaluation of her platelets and consideration for delivery. As it happened she presented with regular contractions every 2 minutes and was in early active labor. Fortunately her blood work showed a platelet count of 105,000. Her has been complicated by significant issues with mood disorder. She denied rupture membranes or bleeding on admission. She had had a negative GBS culture. She was admitted on August 24, 2020 and taken to the operating room for repeat delivery which was performed under general anesthesia due to an adequate spinal but was otherwise without event the patient recovered uneventfully. On Thursday, August 25, 2020 patient was without complaint. She is ambulating, voiding, tolerating oral intake well and had routine care through the day. On postoperative day #2 which was August 26, 2020 patient again was without complaint. She is ambulating, voiding, tolerating oral intake well and had good pain control. She was again stable through the day. On August 27, 2020 which is now postoperative day #3 patient again is doing well. She is ambulating, voiding, tolerating oral intake well and has no complaints. She is requesting discharge home. Principal diagnosis this hospitalization is repeat delivery at 37 weeks gestation Secondary diagnoses are spontaneous labor/thrombocytopenia Operation procedures include monitoring/general anesthesia/repeat delivery Patient was given appropriate discharge instructions verbally and in writing a copy "placed in the chart. Medications on discharge were Percocet Motrin Colace patient was continue her own home medications which include sertraline and bupropion and vitamins REE KNUTSON MD August 27, 2020 08:29
[2020-08-29] MEDS ORDERED: IBUPROFEN 800 MG (MOTRIN) TAB PO SCH (14:15)
== END 2020-08-27 14:30 | disposition home or self-care (01) | DRG 787 ==
LOC: LDRP 09:01
PROVIDERS: ADMIT Obstetrics & Gynecology; ATTEND Obstetrics & Gynecology
PROC: 10D00Z1 Extraction of Products of Conception, Low, Open Approach (ICD-10-PCS; principal; 2020-08-24 12:50)
DX: O34.211 Maternal care for low transverse scar from previous cesarean delivery (principal); O99.12 Other diseases of the blood and blood-forming organs and certain disorders involving the immune mechanism complicating childbirth; O24.429 Gestational diabetes mellitus in childbirth, unspecified control; D69.6 Thrombocytopenia, unspecified; Z3A.37 37 weeks gestation of pregnancy; Z37.0 Single live birth
CPT/HCPCS: 36415; 85025; 86850; 86900; 86901

== ENCOUNTER 2021-12-18 10:45 | Emergency (ER) | payer BC ==
[~2021-12-18] VITALS: Ht 162.5 cm; Wt 86.1 kg
[~2021-12-18 10:45] MED LIST changes: +DOCU-143 PO; +IBUP-1780 PO; +OXYC1TAB12 PO
[2021-12-18] MEDS ORDERED: ONDA4TAB11 PO (11:25)
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
[2021-12-18] MEDS ORDERED: PROCHLORPERAZINE 10 MG TAB (COMPAZINE) PO ONE (11:30)
[2021-12-18] MEDS ORDERED: diphenhydrAMINE 25 MG TAB (BENADRYL) PO ONE (11:30)
[2021-12-18] MEDS ORDERED: IBUPROFEN 600 MG (MOTRIN) TAB PO ONE (11:30)
[2021-12-18 11:35] VITALS: BP 133/85
== END 2021-12-18 11:35 | disposition home or self-care (01) ==
LOC: EDUNIT# 10:45 → ER 10:50
DX: S06.0X0A Concussion without loss of consciousness, initial encounter (principal); W50.0XXA Accidental hit or strike by another person, initial encounter
CPT/HCPCS: 99283

== ENCOUNTER 2022-05-08 11:35 | Emergency (ER) | payer BC ==
[~2022-05-08] VITALS: Ht 162 cm; Wt 84.0 kg
[~2022-05-08 11:35] MED LIST changes: +ONDA4TAB11 PO
[2022-05-08 11:40] VITALS: BP 119/88
--- NOTE | 2022-05-08 12:43 | ED Headache ---
General Chief Complaint: Head/Cervical Problems Stated Complaint: MIGRAINE Nursing Triage Note: PT AMB TO TRIAGE, PT CO OF MIGRAINE SCOTT STARTED TODAY, RATES PAIN 8/10 AND HAVING NAUSEA. HAS HX OF MIGRAINES AND CONCUSSIONS. PT STATES HAS COVID LAST WEEK ON THURSDAY EVENING Source: patient Exam Limitations: no limitations History of Present Illness Date Seen by Provider: May 08, 2022 Time Seen by Provider: 12:20 Initial Comments 31-year-old female with past medical history of migraines and concussions presents to the ER with complaints of a migraine starting this morning upon wakening. States her 4-year-old and her bumped heads last night. Denies loss of consciousness. Reports she was diagnosed with a concussion last November, and has had headaches daily, migraines approximately 10 times a month since the concussion. States that she sees Dr. Zimmerman at [facility] for her migraines. States that this migraine is severe, but similar to previous migraines. Denies that this is the worst migraine of her life. Reports she had COVID last week, symptoms started 04/27/2022, had a negative test yesterday. Reports she still has a cough and nasal congestion. States that she does have a slight sinus headache along with the migraine pain. She took loratadine this morning, and her migraine became worse. Reports the migraine starts above her right eye and radiates down towards the back of her head sometimes into her neck. Reports some blurry vision in her right eye, states this is normal for her migraines. Reports photophobia, phonophobia, nausea, dizziness. Denies fever/chills, chest pain, shortness of breath, abdominal pain, diarrhea/constipation. No nuchal rigidity. Severity/Quality: severe Location: other (Above right, radiating backwards towards the back of her head into her neck.) Prior Headaches/Recent Trauma: frequent headaches, head trauma < 24 hrs ago Associated Symptoms: nausea/vomiting, nasal congestion; No stiff neck; vision changes Allergies and Home Medications Allergies Coded Allergies: hydrocodone (Verified Allergy, Mild, 10/30/19) Patient Home Medication List Home Medication List Reviewed: Yes Amoxicillin/Potassium Clav (Amox Tr-K Clv 875-125 mg Tab) 875 Mg-125 Mg Tablet, 1 EACH PO BID Prescribed by: Lori Vogel on 05/08/22 1353 Buspirone HCl (Buspirone HCl) 30 Mg Tablet, 30 MG PO BID, (Reported) Entered as Reported by: CHEO NOBLES on 08/23/20 1456 Docusate Sodium (Colace) 100 Mg Capsule, 100 MG PO BID Prescribed by: REE AVILA on 08/24/20 1252 Ibuprofen (Ibuprofen) 800 Mg Tablet, 800 MG PO Q6H PRN for PAIN Prescribed by: REE AVILA on 08/24/20 1252 Metformin HCl (Metformin HCl) 500 Mg Tablet, 500 MG PO BID, (Reported) Entered as Reported by: CHEO NOBLES on 08/23/20 1456 Ondansetron (Ondansetron Odt) 4 Mg Tab.rapdis, 4 MG PO Q6H PRN for NAUSEA/VOMITING-1ST LINE Prescribed by: ZANDRA ENNIS on 12/18/21 1125 Oxycodone HCl/Acetaminophen (Percocet 10-325 mg Tablet) 1 Each Tablet, 1 TAB PO Q8H PRN for PAIN-MODERATE Prescribed by: REE AVILA on 08/24/20 1253 Vit W-Ca,Fe,FA(<1 mg) ( Vitamins) 1 Each Tablet, 1 EACH PO DAILY, (Reported) Entered as Reported by: CHEO NOBLES on 08/23/20 1456 Sertraline HCl (Zoloft) 100 Mg Tablet, 200 MG PO HS, (Reported) Entered as Reported by: JUICE BROOKS on 11/08/19 1330 Review of Systems Review of Systems Constitutional: see HPI Past Ngxjsjs-[id number]-Twrrxy Hx Patient Social History Tobacco Use?: No Substance use?: No Alcohol Use?: No Pt feels they are or have been: No Immunizations Up To Date Tetanus Booster (TDap): Less than 5yrs PED Vaccines UTD: Yes Influenza Vaccine Up-to-Date: Yes; Up-to-Date First/Initial COVID19 Vaccinat: YES Second COVID19 Vaccination Lavon: YES Seasonal Allergies Seasonal Allergies: Yes Past Medical History Surgery/Hospitalization HX: HX OF ASTHMA, TMJ, 3 C-SECTIONS, D AND C, T AND A Surgeries: Yes (c/s x2, d&c) Adenoidectomy, Section, Tonsillectomy Respiratory: Yes Asthma Currently Using CPAP: No Currently Using BIPAP: No Cardiac: Yes (hx svt) Neurological: Yes Headaches /Migraines Sexually Transmitted Disease: No HIV/AIDS: No Genitourinary: No Gastrointestinal: No Musculoskeletal: No Endocrine: No (gest diabetes) 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 oz. kg; 32.00 BMI Method: General Appearance: WD/WN, moderate distress HEENT: PERRL/EOMI, TM abnormal (R) (dull), TM abnormal (L) (dull) Neck: full range of motion, supple, normal inspection Cardiovascular: regular rate, rhythm, no edema, no gallop, no JVD, no murmur Respiratory: lungs clear, normal breath sounds, no respiratory distress, no accessory muscle use Extremities: normal range of motion, normal inspection Psychiatric: alert, oriented x 3 Crainal Nerves: normal hearing, normal speech, PERRL, abnormal eye position, abnormal pupil position; No facial droop, No facial weakness, No tongue deviation to R, No tongue deviation to L Skin: normal color, warm/dry Progress/Results/Core Measures Results/Orders My Orders Orders - LORI VOGEL APRN Diphenhydramine Injection (Benadryl Inje (05/08/22 12:30) Metoclopramide Injection (Reglan Injecti (05/08/22 12:30) Ketorolac Injection (Toradol Injection) (05/08/22 12:30) Ed Iv/Invasive Line Start (05/08/22 12:29) Ns Iv 1000 Ml (Sodium Chloride 0.9%) (05/08/22 12:30) Medications Given in ED Current Medications Medications Dose Ordered Sig/Tico Route Start Time Stop Time Status Last Admin Dose Admin Diphenhydramine HCl 25 mg ONCE ONCE IVP 05/08/22 12:30 05/08/22 12:37 DC 1/19/23 13:03 25 MG Ketorolac Tromethamine 15 mg ONCE ONCE IVP 05/08/22 12:30 05/08/22 12:37 DC 05/08/22 13:03 15 MG Metoclopramide HCl 5 mg ONCE ONCE IVP 05/08/22 12:30 05/08/22 12:37 DC 05/08/22 13:03 5 MG Vital Signs/I&O 05/08/22 11:40 Temp 36.4 Pulse 97 Resp 18 B/P (MAP) 119/88 (98) Pulse Ox 96 Blood Pressure Mean: 98 Progress Progress Note #1: Time: 12:47 Progress Note Patient seen and evaluated, sitting on bed, moderate distress. Based on exam and symptoms, differential diagnosis include but are not limited to, migraine headache, tension headache, concussion. No red flags, neurologic exam without evidence focal neurological findings. 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 Temporal arteritis, occipital or trigeminal neuralgia, acute angle glaucoma are unlikely based on exam and physical findings. Presentation not consistent with other acute, emergent causes of headache at this time. We will treat symptomatically with medications and fluids. No indication for imaging or testing at this time although CT scan was considered. Progress Note #2: Time: 13:49 Progress Note Patient reassessed, states she is feeling much better and would like to go home. Will complete IV fluids prior to discharge. Will prescribe Augmentin for sinus infection. Instructed to use humidifier and Cynthia pot, and take loratadine daily. Return precautions provided Departure Impression Primary Impression: Migraine Disposition: 01 HOME, SELF-CARE Condition: Stable Departure-Patient Inst. Decision time for Depature: 13:52 Referrals: NO,LOCAL PHYSICIAN (PCP/Family) Primary Care Physician Patient Instructions: Migraines (DC) Add. Discharge Instructions: Complete full course of antibiotic as prescribed, even if you begin to feel better. You may take Tylenol or ibuprofen as needed for pain. Take loratadine daily until your nasal congestion improves. Use a humidifier with distilled water at bedside to help with nasal congestion. Use a [place] pot also with distilled water, to rinse out your sinuses. Follow-up with Dr. Montanez. Return if you experience worsening or uncontrolled pain, vision changes, recurrent vomiting, difficulty with normal activities, normal behavior, difficulty walking, numbness, weakness, severe head injury, fever, or any other new, concerning, or worsening symptoms. All discharge instructions reviewed with patient and/or family. Voiced understanding. Scripts Amoxicillin/Potassium Clav (Amox Tr-K Clv 875-125 mg Tab) 875 Mg-125 Mg Tablet 1 EACH PO BID for 7 Days, #14 TAB 0 Refills Prov: LORI VOGEL APRN 05/08/22 LORI VOGEL APRN May 08, 2022 12:43
[2022-05-08] MEDS: METOCLOPRAMIDE INJ 10 MG/2 ML (REGLAN) IVP ONE (13:03)
[2022-05-08] MEDS: diphenhydrAMINE 50 MG/ML INJ (BENADRYL) IVP ONE (13:03)
[2022-05-08] MEDS: KETOROLAC 15 MG/ML VIAL IVP ONE (13:03)
[2022-05-08] MEDS: NS IV 1000 ML 1,000 ML IV SCH (13:03)
[2022-05-08] MEDS ORDERED: AMOX1TAB12 PO (13:53)
== END 2022-05-08 14:03 | disposition home or self-care (01) ==
LOC: EDUNIT# 11:35 → ER 11:38
DX: G43.909 Migraine, unspecified, not intractable, without status migrainosus (principal); Z86.16 Personal history of COVID-19
CPT/HCPCS: 99281

== ENCOUNTER 2023-02-25 13:04 | Emergency (ER) | payer BC ==
[~2023-02-25] VITALS: Ht 165.1 cm; Wt 86.1 kg
[~2023-02-25 13:04] MED LIST changes: +AMOX1TAB12 PO
--- NOTE | 2023-02-25 13:36 | ED Headache ---
General Chief Complaint: Head/Cervical Problems Stated Complaint: MIGRAINE X 3 DAYS Nursing Triage Note: PT AMB TO RM 10 WITH CC OF CHRONIC MIGRAINE X3 DAYS. PT STATES THAT SHE HAS NOT TAKEN MEDS TODAY AND SYMPTOMS ARE WORSE. Source: patient Exam Limitations: no limitations History of Present Illness Date Seen by Provider: Feb 25, 2023 Time Seen by Provider: 13:07 Initial Comments 32-year-old female presents to the ER with complaint of migraine for the last 3 days. She reports that the pain became worse last night. She states that it started on the right side of her head above her eye and radiates backwards. She states that now the pain is bilateral. She states that it feels like a normal migraine, just one of her more severe migraines. States that this is not the worst headache of her life. She reports photophobia and phonophobia. States that the pain is worse with movement. She reports nausea, denies vomiting. Reports 2 episodes of loose stools today. She is also on her menstrual cycle. She reports lower abdominal cramping, states that it is similar to her periods, just slightly worse. Denies fever, chest pain, shortness of air, dysuria. She sees a migraine specialist, but states that they will not treat her because she is currently breast-feeding. Her youngest child is 2-1/2 years old. Discussed stopping breast-feeding so that she can get treatment. Allergies and Home Medications Allergies Coded Allergies: hydrocodone (Verified Allergy, Mild, 10/30/19) Patient Home Medication List Home Medication List Reviewed: Yes Amoxicillin/Potassium Clav (Amox Tr-K Clv 875-125 mg Tab) 875 Mg-125 Mg Tablet, 1 EACH PO BID Prescribed by: Lori Velazco on 05/08/22 1353 Buspirone HCl (Buspirone HCl) 30 Mg Tablet, 30 MG PO BID, (Reported) Entered as Reported by: CHEO NOBLES on 08/23/20 1456 Docusate Sodium (Colace) 100 Mg Capsule, 100 MG PO BID Prescribed by: REE AVILA on 08/24/20 1252 Ibuprofen (Ibuprofen) 800 Mg Tablet, 800 MG PO Q6H PRN for PAIN Prescribed by: REE AVILA on 08/24/20 1252 Metformin HCl (Metformin HCl) 500 Mg Tablet, 500 MG PO BID, (Reported) Entered as Reported by: CHEO NOBLES on 08/23/20 1456 Ondansetron (Ondansetron Odt) 4 Mg Tab.rapdis, 4 MG PO Q6H PRN for NAUSEA/VOMITING-1ST LINE Prescribed by: ZANDRA ENNIS on 12/18/21 1125 Oxycodone HCl/Acetaminophen (Percocet 10-325 mg Tablet) 1 Each Tablet, 1 TAB PO Q8H PRN for PAIN-MODERATE Prescribed by: REE AVILA on 08/24/20 1253 Vit W-Ca,Fe,FA(<1 mg) ( Vitamins) 1 Each Tablet, 1 EACH PO DAILY, (Reported) Entered as Reported by: CHEO NOBLES on 08/23/20 1456 Sertraline HCl (Zoloft) 100 Mg Tablet, 200 MG PO HS, (Reported) Entered as Reported by: JUICE BROOKS on 11/08/19 1330 Review of Systems Review of Systems Constitutional: see HPI Past Cgynrnx-Jdigjd-Pddhrn Hx Patient Social History Tobacco Use?: No Substance use?: No Alcohol Use?: No Immunizations Up To Date Tetanus Booster (TDap): Less than 5yrs PED Vaccines UTD: Yes First/Initial COVID19 Vaccinat: YES Second COVID19 Vaccination Lavon: YES Third COVID19 Vaccination Date: YES Seasonal Allergies Seasonal Allergies: Yes Past Medical History Surgery/Hospitalization HX: HX OF ASTHMA, TMJ, 3 C-SECTIONS, D AND C, T AND A, SVT Surgeries: Yes (c/s x2, d&c) Adenoidectomy, Section, Tonsillectomy Respiratory: Yes Asthma Currently Using CPAP: No Currently Using BIPAP: No Cardiac: Yes (hx svt) Neurological: Yes Headaches /Migraines Sexually Transmitted Disease: No HIV/AIDS: No Genitourinary: No Gastrointestinal: No Musculoskeletal: No Endocrine: No (gest diabetes) 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 oz. kg; 31.00 BMI Method: General Appearance: WD/WN, mild distress HEENT: PERRL/EOMI, TMs normal Neck: non-tender, full range of motion, supple, normal inspection Cardiovascular: regular rate, rhythm Respiratory: lungs clear, normal breath sounds, no respiratory distress, no accessory muscle use Gastrointestinal: normal bowel sounds, non tender, soft Crainal Nerves: normal hearing, normal speech, PERRL Coordination/Gait: normal gait Motor/Sensory: no motor deficit, no sensory deficit Skin: normal color, warm/dry Progress/Results/Core Measures Results/Orders My Orders Orders - LORI MENCHACA APRN Metoclopramide Injection (Metoclopramide (02/25/23 13:45) Ketorolac Injection (Ketorolac Injection (02/25/23 13:45) Diphenhydramine Injection (Diphenhydram (02/25/23 13:45) Medications Given in ED Current Medications Medications Dose Ordered Sig/Tico Route Start Time Stop Time Status Last Admin Dose Admin Diphenhydramine HCl 25 mg ONCE ONCE IVP 02/25/23 13:45 02/25/23 13:46 DC 02/25/23 13:58 25 MG Ketorolac Tromethamine 15 mg ONCE ONCE IVP 02/25/23 13:45 02/25/23 13:46 DC 02/25/23 13:59 15 MG Metoclopramide HCl 10 mg ONCE ONCE IVP 02/25/23 13:45 02/25/23 13:46 DC 02/25/23 13:58 10 MG Vital Signs/I&O 02/25/23 02/25/23 13:12 15:29 Pulse 115 B/P (MAP) 119/85 (96) 106/70 Pulse Ox 98 O2 Delivery Room Air Blood Pressure Mean: 96 Progress Progress Note : Progress Note Patient seen and evaluated, resting in bed, mild distress. Based on exam and symptoms, differential diagnosis include but are not limited to. Headache, tens ion headache. No red flags, neurologic exam without evidence focal neurological findings. 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 Temporal arteritis, occipital or trigeminal neuralgia, acute angle glaucoma are unlikely based on exam and physical findings. Presentation not consistent with other acute, emergent causes of headache at this time. Will treat symptomatically with medications and fluids. No indication for imaging or testing at this time although CT scan was considered. 1528 patient reports she is feeling much better. Patient is stable for dis charge. Discharge instructions and return precautions provided. Departure Impression Primary Impression: Migraine Disposition: HOME, SELF-CARE Condition: Stable Departure-Patient Inst. Decision time for Depature: 15:28 Referrals: ALYSSA BAE DO (PCP/Family) Primary Care Physician Patient Instructions: Migraines (DC) Add. Discharge Instructions: Follow-up with your primary care provider or migraine specialist. Return for any new, concerning, or worsening symptoms. All discharge instructions reviewed with patient and/or family. Voiced understanding. LORI MENCHACA APRN Feb 25, 2023 13:36
[2023-02-25] MEDS ORDERED: diphenhydrAMINE INJ 50 MG/ML VIAL IVP ONE (13:45)
[2023-02-25] MEDS ORDERED: KETOROLAC INJ 15 MG/ML VIAL IVP ONE (13:45)
[2023-02-25] MEDS ORDERED: METOCLOPRAMIDE INJ 10 MG/2 ML IVP ONE (13:45)
[2023-02-25 15:29] VITALS: BP 106/70
== END 2023-02-25 15:33 | disposition home or self-care (01) ==
LOC: EDUNIT# 13:04 → ER 13:06
DX: G43.909 Migraine, unspecified, not intractable, without status migrainosus (principal)
CPT/HCPCS: 96374; 96375